=== PATIENT | female | born 2000 | race Caucasian/White ===

== ENCOUNTER 2019-02-19 15:22 | Emergency (ER) | payer OTHER ==
[~2019-02-19] VITALS: Ht 162.6 cm; Wt 57.7 kg
[2019-02-19 15:31] VITALS: BP 163/94
[2019-02-19] MEDS ORDERED: ACETAMINOPHEN 325 MG TAB PO ONE (15:45)
--- NOTE | 2019-02-19 15:45 | NUR ---
Assumed patient care, nursing assessment completed. Patient endorsing left wrist pain, no trauma, no falls. She does state that she carries her daughter with affected extremity.
[2019-02-19 16:06] VITALS: BP 155/84
== END 2019-02-19 16:03 | disposition home or self-care (01) ==
LOC: MED 15:22
DX: M65.4 Radial styloid tenosynovitis [de Quervain] (principal)
CPT/HCPCS: 99283

== ENCOUNTER 2019-04-14 18:41 | Emergency (ER) | payer OTHER ==
[~2019-04-14] VITALS: Ht 162.6 cm; Wt 59.0 kg
[2019-04-14 18:47] VITALS: BP 148/66
--- NOTE | 2019-04-14 18:52 | NUR ---
PT PITA TO CALLI Mcleod
--- NOTE | 2019-04-14 18:58 | NUR ---
C/O R WRIST PAIN X 2 WEEKS. DENIES TRAUMA. BP 148/66 AT THIS TIME. SEEN HERE 02/1419 : R WRIST PAIN & WAS DX :DE QUERVAIN'S TENOSYNOVITIS. MED HX:HTN, DE QUERVAIN'S TENOSYNOVITIS. PATIENT STATES PAIN OF 8/10 AT THIS TIME.
--- NOTE | 2019-04-14 19:14 | NUR ---
REPORT TO JON FAULKNER. ALL CARE TRANSFERRED.
--- NOTE | 2019-04-14 19:14 | NUR ---
RECEIVED REPORT FROM JNO MCKENNA. WILL CONT CARE AT THIS TIME.
[2019-04-14 19:35] VITALS: BP 148/66
--- NOTE | 2019-04-14 19:35 | NUR ---
Patient discharged with v/s stable. Written and verbal after care instructions given and explained. Patient alert, oriented and verbalized understanding of instructions. Ambulatory with steady gait. All questions addressed prior to discharge. ID band removed. Patient advised to follow up with PMD. Rx of ACETAMINOPHEN AN PREDNISONE given. Patient educated on indication of medication including possible reaction and side effects. Opportunity to ask questions provided and answered.
== END 2019-04-14 19:35 | disposition home or self-care (01) ==
LOC: MED 18:41
DX: M65.4 Radial styloid tenosynovitis [de Quervain] (principal); I10 Essential (primary) hypertension
CPT/HCPCS: 12001; 99283

== ENCOUNTER 2019-07-03 04:29 | Emergency (ER) | payer OTHER ==
[~2019-07-03] VITALS: Ht 162.6 cm; Wt 61.2 kg
[2019-07-03 04:40] VITALS: BP 140/70
[2019-07-03] MEDS ORDERED: AMOXICILLIN 500 MG CAP PO ONE (04:45)
[2019-07-03] MEDS ORDERED: PSEUDOEPHEDRINE 30 MG TAB PO ONE (04:45)
[2019-07-03 05:15] VITALS: BP 140/70
== END 2019-07-03 05:15 | disposition home or self-care (01) ==
LOC: MED 04:29
DX: H66.93 Otitis media, unspecified, bilateral (principal); I10 Essential (primary) hypertension
CPT/HCPCS: 99283

== ENCOUNTER 2019-11-06 03:20 | Emergency (ER) | payer OTHER ==
[~2019-11-06] VITALS: Ht 162.6 cm; Wt 60.3 kg
[2019-11-06 03:26] VITALS: BP 143/79
--- NOTE | 2019-11-06 03:30 | NUR ---
PT AMBULATED TO BED #7
--- NOTE | 2019-11-06 03:40 | NUR ---
NO NURSING INTERVENTIONS NEEDED
[2019-11-06 03:45] VITALS: BP 143/79
--- NOTE | 2019-11-06 03:45 | NUR ---
Patient discharged with v/s stable. Written and verbal after care instructions given and explained. Patient alert, oriented and verbalized understanding of instructions. Ambulatory with steady gait. All questions addressed prior to discharge. ID band removed. Patient advised to follow up with PMD. Rx of HYDROXYZINE HYDROCHLORIDE given. Patient educated on indication of medication including possible reaction and side effects. Opportunity to ask questions provided and answered.
== END 2019-11-06 03:45 | disposition home or self-care (01) ==
LOC: MED 03:20
DX: F41.9 Anxiety disorder, unspecified (principal); F43.9 Reaction to severe stress, unspecified; I10 Essential (primary) hypertension
CPT/HCPCS: 99283

== ENCOUNTER 2021-02-28 14:34 | Emergency (ER) | payer OTHER ==
[~2021-02-28] VITALS: Ht 162.6 cm; Wt 58.6 kg
[2021-02-28 14:35] VITALS: BP 146/72
--- NOTE | 2021-02-28 15:07 | NUR ---
21 Y FEMALE FROM HOME WITH C/O VAGINAL BLEEDING X3 DAYS. PT STATED SHE ONLY NOTICES BLOOD WHEN SHE WIPES HERSELF AFTER USING THE RESTROOM. PT DENIES ANY ACTIVE BLEEDING AT THIS TIME. PT DENIES ANY PAIN/DISCOMFORT/DISCHARGE AT THIS TIME. PT IS 5 WEEKS . LMP 01/10/21. [id number]. BP 146/72 AT THIS TIME. PT HAS OB APT TOMORROW PMH: PREECLAMPSIA NKA
--- NOTE | 2021-02-28 15:07 | NUR ---
PT PROVIDED WITH BLANKET AT THIS TIME
--- NOTE | 2021-02-28 15:31 | NUR ---
DR. RUIZ BEDSIDE EVALUATING PT
--- NOTE | 2021-02-28 15:35 | NUR ---
LAB BEDSIDE COLLECTING BLOOD WORK FROM PATIENT
[2021-02-28 15:44] LABS: APPEARANCE,URINE CLEAR (CLEAR); BILIRUBIN,URINE NEGATIVE (NEGATIVE); BLOOD, URINE 2+ (NEGATIVE); COLOR,URINE YELLOW (YELLOW); LEUKOCYTE ESTERASE ,URINE NEGATIVE (NEGATIVE); NITRITE, URINE NEGATIVE (NEGATIVE); UGLUCOSE NEGATIVE (NEGATIVE)
[2021-02-28 15:45] LABS: BASOPHILS % (AUTO) 0.3 % (0.0-2.0); EOSINOPHILS # (AUTO) 0.1 K/uL (0-0.4); EOSINOPHILS % (AUTO) 0.6 % (0.0-4.0); HEMATOCRIT 37.9 % (36-48); HEMOGLOBIN 12.7 g/dL (12.0-16.0); LYMPHOCYTES % (AUTO) 25.2 % (20.5-51.1); MEAN CORPUSCULAR HEMOGLOBIN 28 pg (27-31); MEAN CORPUSCULAR HGB CONC 34 g/dL (33-37); MEAN CORPUSCULAR VOLUME 82.1 fL (80-94); MONOCYTES # (AUTO) 0.5 K/uL (0.8-1.0); MONOCYTES % (AUTO) 6.3 % (1.7-9.3); NEUTROPHILS # (AUTO) 5.4 K/uL (1.8-7.7); NEUTROPHILS % (AUTO) 67.6 % (42.2-75.2); PLATELET COUNT (AUTO) 245 K/uL (140-450); RED BLOOD CELL COUNT(AUTO) 4.62 MIL/uL (4.20-5.40); RED CELL DISTRIBUTION WIDTH 13.9 % (11.6-13.7)
--- NOTE | 2021-02-28 16:02 | NUR ---
US BEDSIDE WITH PATIENT
[2021-02-28 16:04] LABS: CARBON DIOXIDE 27.4 mmol/L (21-32); CREATININE 0.8 mg/dL (0.6-1.3); POTASSIUM 4.4 mmol/L (3.5-5.1)
[2021-02-28 16:07] LABS: RBC,URINE NONE SEEN /HPF (0-5); WBC,URINE 0-5 /HPF (0-5)
[2021-02-28 17:08] VITALS: BP 146/72
--- NOTE | 2021-02-28 17:08 | NUR ---
Patient discharged with v/s stable. Written and verbal after care instructions given and explained. Patient verbalized understanding. Ambulatory with steady gait. All questions addressed prior to discharge. Advised to follow up with PMD.
[2021-02-28 17:34] LABS: TOTAL BILIRUBIN 0.4 mg/dL (0.0-1.0)
[2021-03-01] MEDS ORDERED: NAPR-54 PO ×2 (00:08→00:28)
== END 2021-02-28 16:47 | disposition home or self-care (01) ==
LOC: MED 14:34
DX: O20.0 Threatened abortion (principal); Z3A.01 Less than 8 weeks gestation of pregnancy
CPT/HCPCS: 36415; 76801; 80053; 81001; 81025; 84702; 85025; 86900; 86901; 99284; Q0092

== ENCOUNTER 2021-02-28 22:52 | Emergency (ER) | payer OTHER ==
[~2021-02-28] VITALS: Ht 165.1 cm; Wt 59.0 kg
[2021-02-28 23:07] VITALS: BP 140/92
--- NOTE | 2021-02-28 23:11 | NUR ---
PATIENT TO [facility]
[2021-03-01] MEDS ORDERED: NAPR-54 PO ×2 (00:08→00:28)
[2021-03-01 00:25] VITALS: BP 140/92
--- NOTE | 2021-03-01 00:25 | NUR ---
PT SEEN AND EVALUATED BY ERMD. NO NURSING INTERVENTIONS PROVIDED.
== END 2021-03-01 00:25 | disposition home or self-care (01) ==
LOC: MED 22:52
DX: O20.0 Threatened abortion (principal); Z3A.01 Less than 8 weeks gestation of pregnancy; Z79.899 Other long term (current) drug therapy
CPT/HCPCS: 99282